=== PATIENT | male | born 1975 | race Caucasian/White ===

== ENCOUNTER 2017-05-11 07:44 | Day surgery (SDC) | payer OTHER ==
[~2017-05-11] VITALS: Ht 172.7 cm; Wt 64.8 kg
[~2017-05-11 07:44] MED LIST: BUPIVACAINE/PF 0.5% ONE; HEPARIN 1,000 UNITS/ML, 10ML ONE; PROTAMINE SULFATE 10 MG/ML, 5ML ONE; THROMBIN 5,000 UNIT VIAL TP ONE
[2017-05-11] MEDS ORDERED: SODIUM CHLORIDE 0.9% 1,000 ML IV SCH (09:08)
[2017-05-11] MEDS ORDERED: LIDOCAINE-MPF 1%, 2ML ONE (09:23)
[2017-05-11] MEDS ORDERED: LIDOCAINE 1%, 2ML SQ PRN (09:30)
[2017-05-11] MEDS ORDERED: INSU100V13 SQ (09:34)
[2017-05-11] MEDS ORDERED: INSU100V SQ (09:35)
[2017-05-11] MEDS ORDERED: CLON0.1T PO (09:44)
[2017-05-11] MEDS ORDERED: METO10TA2 PO (09:44)
[2017-05-11] MEDS ORDERED: CLON-364 PO (09:44)
[2017-05-11] MEDS ORDERED: AMLO5TAB2 PO (09:44)
[2017-05-11] MEDS ORDERED: ACET-1600 PO (09:44)
[2017-05-11] MEDS ORDERED: PRAV40TA2 PO (09:44)
[2017-05-11] MEDS ORDERED: ERGO500017 PO (09:44)
[2017-05-11] MEDS ORDERED: FURO20TA3 PO (09:44)
[2017-05-11] MEDS ORDERED: ISOS60TA36 PO (09:44)
[2017-05-11 09:49] VITALS: BP 125/73
[2017-05-11] MEDS ORDERED: FENTANYL PF 100 MCG/2ML ONE ×2 (10:11→12:01)
[2017-05-11] MEDS ORDERED: MIDAZOLAM 1 MG/ML, 2ML ONE (10:11)
[2017-05-11] MEDS ORDERED: DEXAMETHASONE 4 MG/ML, 1ML ONE (10:13)
[2017-05-11] MEDS ORDERED: ONDANSETRON 2MG/ML, 2ML ONE (10:13)
[2017-05-11] MEDS ORDERED: CEFAZOLIN 1,000 MG ONE (10:13)
[2017-05-11] MEDS ORDERED: PROPOFOL 10 MG/ML, 20ML ONE (10:13)
[2017-05-11] MEDS ORDERED: PROMETHAZINE 12.5 MG SUPP PR PRN (10:30)
[2017-05-11] MEDS ORDERED: PROMETHAZINE 25 MG/ML, 1ML IV PRN (10:30)
[2017-05-11] MEDS ORDERED: FENTANYL PF 100 MCG/2ML IV PRN (10:30)
[2017-05-11] MEDS ORDERED: METOCLOPRAMIDE 5 MG/ML, 2ML IV PRN (10:30)
[2017-05-11] MEDS ORDERED: MIDAZOLAM 1 MG/ML, 2ML IV PRN (10:30)
[2017-05-11] MEDS ORDERED: ONDANSETRON 2MG/ML, 2ML IVPush PRN (10:30)
[2017-05-11] MEDS ORDERED: ACETAMINOPHEN 325 MG TABLET PO PRN (10:30)
[2017-05-11] MEDS ORDERED: MEPERIDINE/PF 25MG/0.5ML IVPush PRN (10:30)
[2017-05-11] MEDS ORDERED: DIAZEPAM 5 MG/ML, 2ML IVPush PRN (10:30)
[2017-05-11] MEDS ORDERED: HYDROmorphone 1 MG/ML, 1ML IV PRN (10:30)
[2017-05-11] MEDS ORDERED: ALBUTEROL/IPRATROPIUM 2.5MG/0.5MG, 3 ML NPPB PRN (10:30)
[2017-05-11] MEDS ORDERED: hydrALAzine 20 MG/ML, 1ML IV PRN (10:30)
[2017-05-11] MEDS ORDERED: OXYcodone 5 MG/5 ML ORAL.SOL UDC PO PRN (10:30)
[2017-05-11] MEDS ORDERED: LABETALOL 5MG/ML, 20ML IV PRN (10:30)
[2017-05-11] MEDS ORDERED: METOCLOPRAMIDE 5 MG/ML, 2ML ONE (11:41)
[2017-05-11] MEDS ORDERED: OXYcodone 5 MG/5 ML ORAL.SOL UDC ONE (12:01)
[2017-05-11] MEDS ORDERED: ACETAMINOPHEN 650 MG/20.3 ML UDC ONE (12:01)
== END 2017-05-11 13:40 ==
LOC: OUT 07:44
PROVIDERS: ATTEND Surgery Vascular Surgery
DX: E10.22 Type 1 diabetes mellitus with diabetic chronic kidney disease (principal); I13.11 Hypertensive heart and chronic kidney disease without heart failure, with stage 5 chronic kidney disease, or end stage renal disease; N18.6 End stage renal disease; K21.9 Gastro-esophageal reflux disease without esophagitis; E78.5 Hyperlipidemia, unspecified; Z79.4 Long term (current) use of insulin
CPT/HCPCS: 36415; 36821; 80047; 82962; 93005; J0690; J1100; J1644; J2250; J2405; J2704; J2765; J3010; J3490; J7030; J2720